=== PATIENT | female | born 1945 | race Caucasian/White ===

== ENCOUNTER 2021-02-17 14:39 | Emergency (ER) | payer MEDICARE, OTHER ==
[~2021-02-17] VITALS: Ht 167.6 cm; Wt 62.0 kg
[2021-02-17 14:41] VITALS: BP 136/55
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
== END 2021-02-17 16:41 | disposition home or self-care (01) ==
LOC: ED 16:35
DX: S93.402A Sprain of unspecified ligament of left ankle, initial encounter (principal); R94.31 Abnormal electrocardiogram [ECG] [EKG]; Z85.3 Personal history of malignant neoplasm of breast; W18.30XA Fall on same level, unspecified, initial encounter; Y93.89 Activity, other specified; Y92.89 Other specified places as the place of occurrence of the external cause; Y99.8 Other external cause status
CPT/HCPCS: 93005; 99283